=== PATIENT | male | born 1970 | race Caucasian/White ===

== ENCOUNTER 2020-05-25 16:53 | Inpatient (IN) | payer OTHER ==
[~2020-05-25 16:53] MED LIST: Iopamidol-370 76% 500 ML 1 ML ONE
[2020-05-25 18:41] LABS: Bilirubin Negative (Negative); Blood, Urine Trace (Negative); Clarity Clear (Clear); Glucose, Urine (Dipstick) Normal (Negative); Ketone, Urine Negative (Negative); Leukocyte Negative Leu/uL (Negative); Nitrite Negative (Negative); Protein, Urine (Dipstick) 30 mg/dL (Neg-Trace); RBC/HPF 0-3 HPF (0-3); Specific Gravity, Urine 1.012 (1.002-1.036); pH, Urine 6.5 (5.0-9.0)
[2020-05-25 18:42] LABS: Bacteria/HPF None Seen HPF (None Seen); Squamous Epithelial 0-3 HPF (0-3); WBC/HPF 0-3 HPF (0-3)
[2020-05-25 18:53] LABS: #Basophils 0.1 thou/uL (0.0-0.2); #Eosinphils 0.1 thou/uL (0.0-0.7); #Monocytes 1.4 thou/uL (0.11-0.59); #Neutrophils 13.7 thou/uL (1.40-6.50); %Basophils 0.4 % (0.0-1.0); %Eosinophils 0.6 % (0.0-10.0); %Lymphocytes 11.6 % (21.0-51.0); %Monocytes 7.9 % (0.0-10.0); %Neutrophils 79.5 % (42.0-75.0); Hemoglobin 16.1 g/dL (14.0-18.0); Mean Corpuscular HGB CONC 32.9 g/dL (32.0-36.0); Mean Corpuscular Hemoglobin 31.5 pg (27.0-31.0); Mean Corpuscular Volume 95.8 fL (78.0-98.0); Mean Platelet Volume 7.1 fL (7.4-10.4); Platelet Count 321 thou/uL (130-400); RBC Distribution Width 11.8 % (11.5-14.5); White Blood Cell (WBC) Count 17.3 thou/uL (4.8-10.8)
[2020-05-25 19:16] LABS: ALT (SGPT) 26 U/L (8-55); AST (SGOT) 17 U/L (5-34); Albumin 4.4 g/dL (3.5-5.0); Alkaline Phosphatase 86 U/L (40-110); Anion Gap 15 mmol/L (10-20); BUN (Urea Nitrogen) 8 mg/dL (8.9-20.6); Bilirubin, Total 1.5 mg/dL (0.2-1.2); Calc. Creatinine Clearance 0 mL/min (70-130); Carbon Dioxide 27 mmol/L (22-29); Chloride 100 mmol/L (98-107); Estimated GFR-MDRD 50; Globulin 3.3 g/dL (2.4-3.5); Glucose 98 mg/dL (70-105); Lipase 18 U/L (8-78); Potassium 3.9 mmol/L (3.5-5.1); Protein, Total 7.7 g/dL (6.0-8.3); Sodium 138 mmol/L (136-145)
--- NOTE | 2020-05-25 21:37 | PDOC.FPRHP ---
- History of Present Illness Chief Complaint: abdominal pain History of Present Illness: Pt is a 49 yo M with a PMH of pre diabetes, HLD, depression, PTSD, and CKD who presents with chief complaint of abdominal pain. He states it started last night and is a 1-2/10 intensity when at rest. When he is up and moving around it is 7/10 in intensity. He describes the pain as achy in his LLQ. He states the pain did not increase, but the fact that the pain did not go away is what prompted him to come to the ED. She states he has been eating and drinking without difficulty. He denies past abdominal surgeries or any episodes like this in the past. He has never had a colonoscopy. No alleviating factors. Denies N/V, diarrhea, CP, SOB, changes in vision, fever or chills. ED Course: 750mg Levaquin, 2L fluids, 500mg Metronidazole, Zofran 4mg - Allergies/Adverse Reactions Allergies Allergy/AdvReac Type Severity Reaction Status Date / Time azithromycin [From Zithromax] Allergy Rash Verified 05/26/20 00:09 - Home Medications Medication Instructions Recorded Confirmed Type Chorionic Gonadotropin, Human IM [id number] 05/26/20 History [Novarel] Metronidazole [metroNIDAZOLE] 500 mg PO Q8HR 7 Days #28 tab 05/26/20 Rx Sulfamethoxazole/Trimethoprim 1 tab PO Q12H 7 Days #14 tab 05/26/20 Rx [Bactrim DS] Testosterone Enanthate 170 mg IM Q7D 05/26/20 05/26/20 History - History PMHx: pre diabetes, HLD, depression, PTSD, CKD PSHx: denies FHx: mom-diverticulitis Social: dips 1 can a day since age 9, past history of smoking 1ppd for 25 years but quit 4 years ago. Denies alcohol or drug use - Review of Systems General: denies: fever/chills, weight/appetite/sleep changes Eyes: denies: vision changes Respiratory: denies: cough, congestion, shortness of breath Cardiovascular: denies: chest pain, palpitation Gastrointestinal: reports: abdominal pain. denies: nausea, vomiting, diarrhea, constipation, GI bleeding Genitourinary: denies: dysuria Skin: denies: rashes Musculoskeletal: denies: tenderness Neurological: denies: weakness Psychological: denies: anxiety, depression - Vital signs BP: 112/76 HR: 111 RR: 15 Tmax: 99.3 Pox: 96% on RA Wt: 97kg - Physical Exam Constitutional: NAD, awake, alert and oriented, well developed HEENT: normocephalic and atraumatic, EOMI, grossly normal vision, grossly normal hearing Neck: supple Heart: RRR, normal S1/S2 Lungs: CTAB, no respiratory distress Abdomen: soft, bowel sounds present, no masses/distention -Abdomen: tender to palpation in LLQ, no rigidty, mild guarding in LLQ Musculoskeletal: normal tone Neurological: no focal deficit Skin: no rash/lesions, good turgor Psychiatric: normal mood and affect, good judgment and insight, intact recent and remote memory FMR H&P: Results - Labs Result Diagrams: 05/26/20 06:41 05/26/20 06:41 Lab results: WBC 17.3 thou/uL (4.8-10.8) H 05/25/20 18:44 Hgb 16.1 g/dL (14.0-18.0) 05/25/20 18:44 Hct 48.8 % (42.0-52.0) 05/25/20 18:44 MCV 95.8 fL (78.0-98.0) 05/25/20 18:44 Plt Count 321 thou/uL (130-400) 05/25/20 18:44 Neutrophils % 79.5 % (42.0-75.0) H 05/25/20 18:44 Sodium 138 mmol/L (136-145) 05/25/20 18:44 Potassium 3.9 mmol/L (3.5-5.1) 05/25/20 18:44 Chloride 100 mmol/L (98-107) 05/25/20 18:44 Carbon Dioxide 27 mmol/L (22-29) 05/25/20 18:44 BUN 8 mg/dL (8.9-20.6) L 05/25/20 18:44 Creatinine 1.49 mg/dL (0.7-1.3) H 05/25/20 18:44 Glucose 98 mg/dL (70-105) 05/25/20 18:44 Calcium 9.0 mg/dL (7.8-10.44) 05/25/20 18:44 Total Bilirubin 1.5 mg/dL (0.2-1.2) H 05/25/20 18:44 AST 17 U/L (5-34) 05/25/20 18:44 ALT 26 U/L (8-55) 05/25/20 18:44 Alkaline Phosphatase 86 U/L (40-110) 05/25/20 18:44 Serum Total Protein 7.7 g/dL (6.0-8.3) 05/25/20 18:44 Albumin 4.4 g/dL (3.5-5.0) 05/25/20 18:44 Lipase 18 U/L (8-78) 05/25/20 18:44 Urine Ketones Negative mg/dL (Negative) 05/25/20 18:12 Urine Blood Trace (Negative) A 05/25/20 18:12 Urine Nitrite Negative (Negative) 05/25/20 18:12 Ur Leukocyte Esterase Negative Jerrod/uL (Negative) 05/25/20 18:12 Urine RBC 0-3 HPF (0-3) 05/25/20 18:12 Urine WBC 0-3 HPF (0-3) 05/25/20 18:12 Ur Squamous Epith Cells 0-3 HPF (0-3) 05/25/20 18:12 Urine Bacteria None Seen HPF (None Seen) 05/25/20 18:12 FMR H&P: A/P - Plan Sepsis 2/2 Diverticulitis -leukocytosis, tachycardic on admission -s/p Levaquin, 2L fluids and Metronidazole in ED -CT abd/pelvis showed acute diverticulitis, uncomplicated -will continue with Rocephin and Metronidazole -Clear liquid diet, as patient has been tolerating PO without difficulty. Advance as able -MIVF @ 135mL/hr -Dietary consulted, appreciate the recs -patient refused Morphine, Tylenol PRN CKD stage 3a -Cr 1.49, GFR 50 on admission, seems to be about baseline -avoid nephrotoxic agents as able -continue to monitor Pre diabetes -aware, continue home meds HLD -aware, continue home med Depression -aware, patient denies any history, however it was listed as a problem on his clinic chart -not currently on medications PTSD -aware, patient denies any history, however it was listed as a problem on his clinic chart -not currently on medications Code: FULL PCP: [facility] Fluids: MIVF @ 135mL/hr DVT ppx: Lovenox Dispo: admit to inpatient medical, anticipated LOS > 48 hours FMR H&P: Upper Level - Plan Date/Time: 05/25/202136 I, Triston Beltran PGY3, have evaluated this patient and agree with findings/plan as outlined by wedding planning internship resident. Pertinent changes/additions are listed here. 49yo M with uncomplicated pmh presents with worsening abdominal pain, no other GI Sx or other Sx on extensive ROS. His states that he was feeling feverish a few nights ago. Exam remarkable for tachycardia, otherwise vitals wnl. Cardiopulm exam wnl, GI exam not very impressive however CT scan reveals simple diverticulitis A/P Sepsis 2/2 diverticulitis -stable. SIRS positive for tachycardia and WBC 17. No CT evidence of complicated diverticulitis. S/p levaquin and flagyl. Will continue flagyl and start rocephin. Clear liquid diet. mIVF. Dietary consult to advise pt on diet to prevent future episodes, pt and are very motivated. Tylenol for pain CKD -documented hx of stage 1 however last Cr was 1.37 in November 2018 and Cr 1.49 in ED today with gfr 50. UA shows hematuria. Will avoid nephrotoxic meds and advise outpt f/u for hematuria HLD, prediabetes, Depression, PTSD -stable, continue home meds Code: FULL PCP: Neville Casiano Fluids: MIVF @ 135mL/hr DVT ppx: Lovenox Dispo: admit to inpatient medical, anticipated LOS > 48 hours Addendum - Attending - Attending Attestation Date/Time: 05/26/20 1300 I personally evaluated the patient and discussed the management with the team. I agree with the History, Examination, Assessment and Plan documented above with any addition or exceptions noted below. Tolerating PO with minimal pain. Give one dose of PO antibiotics and plan for outpatient management.
--- NOTE | 2020-05-25 21:39 | CT ---
CT ABDOMEN AND PELVIS WITH CONTRAST: 05/25/20 COMPARISON: None. HISTORY: Left lower quadrant abdominal pain. TECHNIQUE: Multiple contiguous axial images were obtained in a CT of the abdomen and pelvis with contrast. Sagit tomasz and coronal reformats were performed. FINDINGS: There are numerous scattered diverticula in the left colon. Stranding changes are seen surrounding th e left colon at the junction of the descending colon and sigmoid colon. This is consistent with acute diverticulitis. No free air or focal fluid collection is seen in the abdomen or pelvis. The small lary wel is normal in caliber. The appendix is normal. The liver, gallbladder, kidneys, adrenal glands, spleen, and pancreas are unremarkable. No abdominal or pelvic lymphadenopathy are seen. The osseous structures and abdominal wall soft tissues are unremarkable. The visualized inferior thor ax is unremarkable. IMPRESSION: Acute diverticulitis. POS: EAA
[2020-05-25] MEDS ORDERED: Ondansetron PF 4 MG/2 ML Vial ONE (21:41)
[2020-05-25] MEDS ORDERED: metroNIDAZOLE 500 MG/100 ML BAG ONE (21:41)
[2020-05-25] MEDS ORDERED: Morphine 4 MG/ML VIAL ONE (21:41)
[2020-05-25] MEDS ORDERED: Calcium Carbonate 500 MG ChewTAB PO PRN (23:06)
[2020-05-25] MEDS ORDERED: Acetaminophen 325 MG TAB PO PRN (23:06)
[2020-05-25] MEDS ORDERED: Ondansetron ODT 4 MG TAB PO PRN (23:06)
[2020-05-25] MEDS ORDERED: Ketorolac Tromethamine 30 MG/ML VIAL IVP PRN (23:10)
[2020-05-25] MEDS ORDERED: cefTRIAXone\\ROCEPHIN 2 GM in Sodium Chloride 0.9% 100 ML IVPB SCH (23:59)
[2020-05-26 00:15] VITALS: BMI 31.1
[2020-05-26] MEDS: Lactated Ringer's 1,000 ML IV SCH ×2 (00:24→06:36)
[2020-05-26] MEDS ORDERED: Nicotine 14 MG PATCH TD SCH (06:00)
[2020-05-26] MEDS: metroNIDAZOLE 500 MG in Premix Bag 1 BAG IVPB SCH ×2 (06:11→13:57)
[2020-05-26 06:58] LABS: #Basophils 0.1 thou/uL (0.0-0.2); #Eosinphils 0.2 thou/uL (0.0-0.7); #Lymphocytes 1.7 thou/uL (1.20-3.40); #Monocytes 0.9 thou/uL (0.11-0.59); #Neutrophils 8.5 thou/uL (1.40-6.50); %Basophils 0.8 % (0.0-1.0); %Eosinophils 2.1 % (0.0-10.0); %Lymphocytes 14.9 % (21.0-51.0); %Monocytes 7.9 % (0.0-10.0); %Neutrophils 74.3 % (42.0-75.0); Hemoglobin 14.9 g/dL (14.0-18.0); Mean Corpuscular HGB CONC 32.5 g/dL (32.0-36.0); Mean Corpuscular Hemoglobin 32.1 pg (27.0-31.0); Mean Corpuscular Volume 98.7 fL (78.0-98.0); Mean Platelet Volume 7.2 fL (7.4-10.4); Platelet Count 267 thou/uL (130-400); RBC Distribution Width 11.7 % (11.5-14.5); Red Blood Cell (RBC) Count 4.64 mill/uL (4.70-6.10); White Blood Cell (WBC) Count 11.4 thou/uL (4.8-10.8)
[2020-05-26 07:14] LABS: ALT (SGPT) 28 U/L (8-55); AST (SGOT) 22 U/L (5-34); Albumin 3.6 g/dL (3.5-5.0); Alkaline Phosphatase 80 U/L (40-110); Anion Gap 12 mmol/L (10-20); BUN (Urea Nitrogen) 9 mg/dL (8.9-20.6); Bilirubin, Total 0.6 mg/dL (0.2-1.2); Calc. Creatinine Clearance 90 mL/min (70-130); Calcium 8.7 mg/dL (7.8-10.44); Carbon Dioxide 25 mmol/L (22-29); Chloride 106 mmol/L (98-107); Estimated GFR-MDRD 56; Globulin 2.7 g/dL (2.4-3.5); Glucose 106 mg/dL (70-105); Potassium 3.9 mmol/L (3.5-5.1); Protein, Total 6.3 g/dL (6.0-8.3); Sodium 139 mmol/L (136-145)
[2020-05-26] MEDS ORDERED: metFORMIN 500 MG TAB PO SCH (08:00)
[2020-05-26] MEDS ORDERED: Atorvastatin Calcium 40 MG TAB PO SCH (09:00)
[2020-05-26] MEDS ORDERED: Enoxaparin Sodium 40 MG/0.4 ML SYRINGE SC SCH (09:00)
[2020-05-26 11:38] VITALS: BP 96/61; TEMP 98.4
== END 2020-05-26 14:00 | disposition home or self-care (01) | DRG 872 ==
LOC: ERS 16:53 → T4-B 21:38
PROVIDERS: ADMIT Family Medicine; ATTEND Family Medicine
DX: A41.9 Sepsis, unspecified organism (principal); K57.32 Diverticulitis of large intestine without perforation or abscess without bleeding; E78.5 Hyperlipidemia, unspecified; N18.31 Chronic kidney disease, stage 3a; F32.9 Major depressive disorder, single episode, unspecified; R73.03 Prediabetes; F43.10 Post-traumatic stress disorder, unspecified; Z88.1 Allergy status to other antibiotic agents; Z87.891 Personal history of nicotine dependence
CPT/HCPCS: 36415; 74177; 80053; 81003; 81015; 83690; 85025; 96365; 96375; J0696; J1956; J2270; J2405; J3490; Q9967